=== PATIENT | female | born 1985 | race American Indian/Alaskan Native ===

== ENCOUNTER 2018-12-04 17:01 | Emergency (ER) | payer SELFPAY ==
[2018-12-04] MEDS ORDERED: ASPIRIN PO ONE (17:06)
[2018-12-04 17:41] LABS: Basophils % (Auto) 0.2 % (0.0-1.8); Eosinophils # (Auto) 0.2 K/mm3 (0.0-0.4); Hematocrit 36.9 % (30.3-42.9); Hemoglobin 12.6 gm/dl (10.1-14.3); Lymphocytes # (Auto) 3.5 K/mm3 (1.2-5.4); Lymphocytes % (Auto) 45.3 % (13.4-35.0); Mean Corpuscular HGB Conc 34 % (30-34); Mean Corpuscular Volume 90 fl (79-97); Monocytes # (Auto) 0.7 K/mm3 (0.0-0.8); Monocytes % (Auto) 9.7 % (0.0-7.3); Platelet Count 331 K/mm3 (140-440); Red Cell Distribution Width 13.7 % (13.2-15.2)
--- NOTE | 2018-12-04 17:42 | XRay Report ---
CHEST 2 VIEWS INDICATION / CLINICAL INFORMATION: Chest Pain. COMPARISON: None available. FINDINGS: SUPPORT DEVICES: None. HEART / MEDIASTINUM: No significant abnormality. LUNGS / PLEURA: No significant pulmonary or pleural abnormality. No pneumothorax. ADDITIONAL FINDINGS: No significant additional findings. IMPRESSION: 1. No acute findings. Signer Name: Anastacio Crenshaw MD Signed: 12/04/2018 5:37 PM Workstation Name: [id number]
[2018-12-04 17:58] LABS: BUN/Creatinine Ratio 11; Blood Urea Nitrogen 10 mg/dL (7-17); Calcium 9.3 mg/dL (8.4-10.2); Hemolysis Index 2
[2018-12-04] MEDS ORDERED: PERCOCET 5/325 PO ONE (20:02)
[2018-12-04] MEDS ORDERED: CATAPRES PO STA (20:53)
[2018-12-05 01:27] VITALS: BP 154/78
== END 2018-12-04 21:00 | disposition home or self-care (01) ==
LOC: ED 17:01
DX: R07.89 Other chest pain (principal); Z53.21 Procedure and treatment not carried out due to patient leaving prior to being seen by health care provider
CPT/HCPCS: 36415; 71046; 80048; 84484; 85025; 85379; 93005; 93010

== ENCOUNTER 2019-10-14 23:43 | Emergency (ER) | payer SELFPAY | END 2019-10-15 01:22 | LOC: ED 23:43 | DX: O26.893 Other specified pregnancy related conditions, third trimester (principal); R56.9 Unspecified convulsions; Z53.21 Procedure and treatment not carried out due to patient leaving prior to being seen by health care provider; Z3A.27 27 weeks gestation of pregnancy ==

== ENCOUNTER 2019-11-17 21:14 | Outpatient (CLI) | payer MEDICAID, OTHER ==
[2019-11-17] MEDS ORDERED: LACTATED RINGERS 1,000 ML ONE (21:32)
[2019-11-17 21:38] VITALS: BP 141/72
[2019-11-17] MEDS ORDERED: LACTATED RINGERS 500 ML IV ONE (22:00)
[2019-11-17 22:15] LABS: Bacteria,Urine 4+ /HPF (Negative); Bilirubin,Urine NEG (Negative); Blood,Urine NEG (Negative); Color,Urine Yellow (Yellow); Hyaline Casts,Urine 1 /LPF; Mucus,Urine FEW /HPF; Protein,Urine <15 mg/dL mg/dL (Negative); Urobilinogen,Urine < 2.0 mg/dL (<2.0)
[2019-11-17] MEDS ORDERED: ONDANSETRON 4 MG/2 ML INJ IV ONE (22:52)
== END 2019-11-17 22:50 | disposition home or self-care (01) ==
LOC: TRG 21:14 → APU 21:20 → TRG 22:50
PROVIDERS: ATTEND Obstetrics & Gynecology
DX: O99.613 Diseases of the digestive system complicating pregnancy, third trimester (principal); K92.0 Hematemesis; O10.013 Pre-existing essential hypertension complicating pregnancy, third trimester; Z3A.32 32 weeks gestation of pregnancy; Z79.899 Other long term (current) drug therapy
CPT/HCPCS: 59025; 81001; 87086; 96361; 96374; J2405; J7120; 96360

== ENCOUNTER 2019-12-31 16:08 | Outpatient (CLI) | payer MEDICAID ==
[2019-12-31 17:09] VITALS: BP 134/78
[2019-12-31 18:33] LABS: Bacteria,Urine 3+ /HPF (Negative); Bilirubin,Urine NEG (Negative); Blood,Urine NEG (Negative); Color,Urine Yellow (Yellow); Mucus,Urine FEW /HPF
== END 2019-12-31 18:27 | disposition left against medical advice (07) ==
LOC: APU 16:08 → TRG 16:08
PROVIDERS: ATTEND Obstetrics & Gynecology
DX: O47.1 False labor at or after 37 completed weeks of gestation (principal); N39.0 Urinary tract infection, site not specified; Z3A.38 38 weeks gestation of pregnancy
CPT/HCPCS: 81001; 87086

== ENCOUNTER 2020-01-11 20:35 | Inpatient (IN) | payer MEDICAID, OTHER ==
[2020-01-11] MEDS ORDERED: LACTATED RINGERS 1,000 ML ONE (20:49)
[2020-01-11] MEDS ORDERED: PROMETHAZINE 25 MG TAB PO PRN (23:24)
[2020-01-11] MEDS ORDERED: ePHEDrine SULFATE 50 MG/1 ML INJ IV PRN (23:24)
[2020-01-11] MEDS ORDERED: ACETAMINOPHEN 325 MG TAB PO PRN (23:24)
[2020-01-11] MEDS ORDERED: MINERAL OIL 30 ML ORAL LIQD PO PRN (23:24)
[2020-01-11] MEDS ORDERED: TERBUTALINE 1 MG/1 ML INJ SUB-Q PRN (23:24)
[2020-01-11] MEDS ORDERED: fentaNYL 100 MCG/2 ML INJ IV PRN (23:24)
[2020-01-11] MEDS ORDERED: BUTORPHANOL 2 MG/1 ML INJ IV PRN (23:24)
[2020-01-11] MEDS ORDERED: TERBUTALINE 1 MG/1 ML INJ IVP PRN (23:24)
[2020-01-11] MEDS ORDERED: ONDANSETRON 4 MG/2 ML INJ IV PRN (23:24)
[2020-01-11] MEDS ORDERED: LIDOCAINE (2%) 20 MG/1 ML VIAL 20 ML MDV INFILTRATI ONE (23:24)
[2020-01-11] MEDS ORDERED: NALOXONE 0.4 MG/1 ML INJ IV PRN (23:24)
[2020-01-11] MEDS ORDERED: ZOLPIDEM 5 MG TAB PO PRN (23:32)
[2020-01-11] MEDS ORDERED: OXYTOCIN 20 UNIT/1000ML DRIP 20 UNITS/1,000 ML BAG IV SCH (23:45)
[2020-01-11] MEDS: miSOPROStol 25 MCG TAB VG SCH (23:52)
[2020-01-11 23:58] LABS: Hematocrit 34.5 % (30.3-42.9); Hemoglobin 11.6 gm/dl (10.1-14.3); Mean Corpuscular HGB Conc 34 % (30-34); Mean Corpuscular Volume 89 fl (79-97); Platelet Count 240 K/mm3 (140-440); Red Blood Count 3.87 M/mm3 (3.65-5.03); Red Cell Distribution Width 14.1 % (13.2-15.2)
[2020-01-12] MEDS: miSOPROStol 25 MCG TAB VG SCH ×3 (04:10→12:32)
[2020-01-12] MEDS: NIFEdipine XL 30 MG TAB PO SCH (10:04)
[2020-01-12] MEDS: levETIRAcetam 500 MG TAB PO SCH (10:05)
[2020-01-12] MEDS: SERTRALINE 100 MG TAB PO SCH (10:05)
--- NOTE | 2020-01-12 13:09 | History and Physical Report ---
History of Present Illness Date of examination: 01/12/20 Date of admission: 01/11/20 20:35 Chief complaint: scheduled induction of labor History of present illness: Pt is a 34 year old -[place] female primigravida BRI 01/25/20 at 38w1d who presents for scheduled induction of labor secondary to chronic hypertension on Procardia 30 mg daily. She denies contractions, vaginal bleeding or leakage of fluid. She has had care with [facility] with comanagement by [facility] secondary to morbid obesity, chronic hypertension, anxiety and depression, pericardial effusion, GERD on omeprazole, Glucose intolerance, genital herpes without lesion or prodrome, h/o abnormal pap smear, Rubella equivocal status, seizure disorder or Keppra 500 mg BID, Trichomonas treated with negative test of cure. She is GBS negative. 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 History: abnormal PAP smear, herpes Family/Genetic History: heart disease, hypertension Social history: no significant social history, other (Same gender partner ) - Obstetrical History Expected Date of Delivery: 01/25/20 Actual Gestation: 38 Week(s) 1 Day(s) : 1 Medications and Allergies Allergies Allergy/AdvReac Type Severity Reaction Status Date / Time coconut Allergy Itching Verified 01/11/20 22:26 Home Medications Medication Instructions Recorded Confirmed Last Taken Type NIFEdipine [Procardia Xl] 30 mg PO DAILY 01/11/20 01/11/20 01/11/20 History 30 MG Sertraline HCl [Zoloft] 100 mg PO DAILY 01/11/20 01/11/20 01/11/20 History 100 levETIRAcetam [Keppra] 500 mg PO DAILY 01/11/20 01/11/20 01/11/20 History 500 MG Active Meds: Active Medications Acetaminophen (Tylenol) 650 mg PO Q4H PRN PRN Reason: Pain, Mild (1-3) Butorphanol Tartrate (Stadol) 1 mg IV Q2H PRN PRN Reason: Pain, Moderate(4-6) LABOR PAIN Butorphanol Tartrate (Stadol) 2 mg IV Q2H PRN PRN Reason: Pain , Severe (7-10) Ephedrine Sulfate (Ephedrine Sulfate) 10 mg IV Q2M PRN PRN Reason: Hypotension Fentanyl (Sublimaze) 100 mcg IV Q2H PRN PRN Reason: Pain,Severe (7-10) LABOR PAIN Oxytocin/Sodium Chloride (Pitocin/Ns 20 Unit/1000ml Drip) 20 units in 1,000 mls @ 125 mls/hr IV DIRECT TARYN Oxytocin/Sodium Chloride (Pitocin/Ns 30 Unit/500ml) 30 units in 500 mls @ 1 mls/hr IV TITR TARYN; Protocol Lactated Ringer's (Lactated Ringers) 1,000 mls @ 125 mls/hr IV DIRECT TARYN Levetiracetam (Keppra) 500 mg PO DAILY [facility] Last Admin: 01/12/20 10:05 Dose: 500 mg Documented by: Mineral Oil (Mineral Oil) 30 ml PO QHS PRN PRN Reason: Constipation Misoprostol (Cytotec) 25 mcg VG Q4H [facility] Last Admin: 01/12/20 12:32 Dose: 25 mcg Documented by: Naloxone HCl (Naloxone) 0.1 mg IV Q2MIN PRN PRN Reason: Res Rate </= 8 or 02 SAT < 92% Nifedipine (Procardia Xl) 30 mg PO QDAY [facility] Last Admin: 01/12/20 10:04 Dose: 30 mg Documented by: Ondansetron HCl (Zofran) 4 mg IV Q8H PRN PRN Reason: Nausea And Vomiting Last Admin: 01/12/20 10:40 Dose: 4 mg Documented by: Promethazine HCl (Phenergan) 25 mg PO Q6H PRN PRN Reason: Nausea And Vomiting Sertraline HCl (Zoloft) 100 mg PO QDAY [facility] Last Admin: 01/12/20 10:05 Dose: 100 mg Documented by: Terbutaline Sulfate (Brethine) 0.25 mg SUB-Q ONCE PRN PRN Reason: Hyperstimulation/Hypertonicity Terbutaline Sulfate (Brethine) 0.25 mg IVP ONCE PRN PRN Reason: Hyperstimulation/Hypertonicity Zolpidem Tartrate (Ambien) 5 mg PO QHS PRN PRN Reason: Sleep Review of Systems All systems: negative - Vital Signs Vital signs: Vital Signs Pulse BP 99 H 139/94 01/11/20 21:09 01/11/20 21:09 Temp Pulse Resp BP Pulse Ox 98.6 F 97 H 18 141/80 99 01/12/20 12:33 01/12/20 12:35 01/12/20 07:15 01/12/20 12:35 01/12/20 10:38 - Physical Exam Breasts: Positive: deferred Abdomen: Positive: soft (obese, gravid ) Genitourinary (Female): Positive: normal external genitalia Uterus: Positive: enlarged (gravid ) Extremities: Positive: edema - Obstetrical FHR: auscultation normal Uterine Contraction Monitor Mode: External Cervical Dilatation: 1 Cervical Effacement Percentage: 60 station: -2 Uterine Contraction Pattern: Irregular Uterine Tone Measurement Phase: Resting Uterine Contraction Intensity: Mild Results Result Diagrams: 01/11/20 22:00 All other labs normal. Assessment and Plan A: IUP at 38w1d undergoing induction of labor Chronic Hypertension on Procardia XL 30 mg Morbid obesity Anxiety and depression pericardial effusion GERD on omeprazole Glucose intolerance Genital herpes without lesion or prodrome Rubella equivocal status Seizure disorder on Keppra 500 mg BID Trichomonas treated with negative test of cure GBS negative P: Continue induction of labor Closely monitor maternal and status
[2020-01-12] MEDS ORDERED: FAMOTIDINE 20 MG/2 ML INJ IV PRN (21:11)
[2020-01-12] MEDS: OXYTOCIN DRIP 30 UNITS/500 ML BAG IV SCH (21:48)
[2020-01-13] MEDS: LACTATED RINGERS 1,000 ML IV SCH ×3 (02:00→23:12)
--- NOTE | 2020-01-13 08:51 | Event Note ---
Date: 01/13/20 Pt minimally uncomfortable. Category II tracing. SVE:/-2. AROM- clear fluid. IUPC placed. Continue pitocin titration. Closely monitor maternal status.
[2020-01-13] MEDS: levETIRAcetam 500 MG TAB PO SCH (10:49)
[2020-01-13] MEDS: NIFEdipine XL 30 MG TAB PO SCH (10:50)
[2020-01-13] MEDS: SERTRALINE 100 MG TAB PO SCH (10:50)
[2020-01-13] MEDS ORDERED: ePHEDrine SULFATE 50 MG/1 ML INJ IV PRN (12:23)
[2020-01-13] MEDS ORDERED: NALOXONE 2 MG/2 ML INJ IV PRN (12:23)
[2020-01-13] MEDS: BUTORPHANOL 2 MG/1 ML INJ IV PRN ×2 (12:24→14:53)
[2020-01-13] MEDS: OXYTOCIN DRIP 30 UNITS/500 ML BAG IV SCH ×4 (13:55→17:21)
[2020-01-13] MEDS ORDERED: DEXMEDETOMIDINE 200 MCG/2 ML VIAL IV ONE (16:45)
--- NOTE | 2020-01-13 16:58 | Anesthesia Consultation ---
Anesthesia Consult and Med Hx Date of service: 01/13/20 - Airway Anesthetic Teeth Evaluation: Good ROM Head & Neck: Adequate Mental/Hyoid Distance: Adequate Mallampati Class: Class IV Intubation Access Assessment: Possibly Difficult - Pulmonary Exam CTA: Yes - Cardiac Exam Cardiac Exam: RRR - Pre-Operative Health Status ASA Pre-Surgery Classification: ASA2 Proposed Anesthetic Plan: Epidural - Pulmonary Hx Smoking: No Hx Asthma: No COPD: No Hx Pneumonia: No Hx Sleep Apnea: No - Cardiovascular System Hx Hypertension: Yes - Central Nervous System Hx Seizures: Yes Hx Psychiatric Problems: Yes - Gastrointestinal Hx Gastroesophageal Reflux Disease: Yes - Endocrine Hx Renal Disease: No Hx End Stage Renal Disease: No Hx Hypothyroidism: No Hx Hyperthyroidism: No - Hematic Hx Anemia: No Hx Sickle Cell Disease: No - Other Systems Hx Alcohol Use: No Hx Obesity: Yes
--- NOTE | 2020-01-13 17:05 | Progress Note ---
Labor Epidural - Labor Epidural Start Time: 16:25 Stop Time: 16:43 Performed by:: JUSTIN LONDONO Procedure: Patient is requesting a laboring epidural for laboring pain. Patient IDed, H&P reviewed, all questions and concerns were answered, and consent was signed. Timeout was performed at bedside. Patient in sitting position. Sterile prep and drape was performed. 3ml of 1% lidocaine skin wheal at L[3]- L [4]. 18- gauge Touhy epidural needle was advanced to loss of resistance with air at 9cm technique. Negative CSF negative blood. Epidural catheter advanced to [16] centimeters. [-] Aspiration [-] test dose. Sterile dressing applied. Patient tolerated procedure.
[2020-01-13] MEDS: fentaNYL-BUPIV 2 MCG/ML-0.125% 200 MCG/100 ML BAG EPIDURAL SCH (17:31)
[2020-01-14] MEDS: fentaNYL-BUPIV 2 MCG/ML-0.125% 200 MCG/100 ML BAG EPIDURAL SCH (01:27)
[2020-01-14] MEDS ORDERED: BUPIVACAINE/PF (0.25%) 2.5 MG/ML 10 ML VIAL INFILTRATI ONE (02:18)
--- NOTE | 2020-01-14 05:57 | Event Note ---
Date: 01/14/20 Pt reports rectal pressure. Anterior lip noted, not reducible. Maternal tachycardia noted, temperature 102.8 degrees F. Initiate Ampicillin and Gen tamicin. Pitocin now infusing, line was previously occluded. Closely monitor clinical status.
[2020-01-14] MEDS: AMPICILLIN/NS 2 GM/100 ML 2 GM/100 ML BAG IV SCH ×3 (06:00→23:41)
[2020-01-14] MEDS ORDERED: GENTAMICIN/NS 120MG/100ML 120 MG/100 ML BAG IV SCH (06:00)
[2020-01-14] MEDS ORDERED: GENTAMICIN/NS 80 MG/100 ML 100 ML IV SCH (06:00)
[2020-01-14] MEDS ORDERED: PROMETHAZINE 25 MG TAB PO PRN (07:17)
[2020-01-14] MEDS ORDERED: MAGNESIUM HYDROXIDE (MOM) ORAL LIQD UDC PO PRN (07:17)
[2020-01-14] MEDS ORDERED: WITCH HAZEL/ GLYCERIN PAD TP PRN (07:17)
[2020-01-14] MEDS ORDERED: ACETAMINOPHEN 325 MG TAB PO PRN (07:17)
[2020-01-14] MEDS ORDERED: PROMETHAZINE 25 MG RECT SUPP PR PRN (07:17)
[2020-01-14] MEDS ORDERED: LANOLIN/ZINC/DIMETHICONE (LANSINOH) 7 GM TP PRN (07:17)
[2020-01-14] MEDS ORDERED: ONDANSETRON 4 MG/2 ML INJ IV PRN (07:17)
[2020-01-14] MEDS ORDERED: diphenhydrAMINE 25 MG CAP PO PRN (07:17)
--- NOTE | 2020-01-14 07:17 | Procedure Note ---
OB Delivery Note - Delivery Date of Delivery: 01/14/20 Surgeon: STEPHENIE CONNOLLY ([facility]) Estimated blood loss: 300cc - Vaginal Delivery presentation: vertex Delivery position: OA Intrapartum events: febrile- temp >100.3, PROM->1hr before delivery Delivery induction: misoprostol Delivery augmentation: rupture of membranes, pitocin Delivery monitor: external FHT Route of delivery: Delivery placenta: spontaneous Delivery cord: 3 umbilical vessels, other (true knot) Episiotomy: none Delivery laceration: 1st degree (hemostatic, not repaired) Anesthesia: epidural Delivery comments: Excellent maternal effort progressed to of viable female at 0650. Head delivered OA, restituted LOT, shoulders followed with gentle traction. Terminal meconium. Infant to maternal abdomen, gasping, good tone and color. Cord clamped and cut, to warmer, NICU team present. True knot noted in cord. Venous cord blood gas collected. Placenta delivered spontaneously and intact, 3VC. Shallow first degree perineal laceration noted, hemostatic, not repaired. Brisk bleeding resolved with manual removal of clot from lower uterine segment. Pitocin infusing, fundus firm. Mother and bonding well. Apgars 7/9. - A at 1 minute: 7 at 5 minutes: 9 Infant Gender: Female
[2020-01-14] MEDS ORDERED: GENTAMICIN/NS 80 MG/100 ML 100 ML IV ONE (07:26)
[2020-01-14] MEDS ORDERED: GENTAMICIN 400 MG in SODIUM CHLORIDE 0.9% 100 ML IV SCH (08:00)
[2020-01-14] MEDS ORDERED: OXYTOCIN 20 UNIT/1000ML DRIP 20,000 MILLIUNITS/1,000 ML BAG IV ONE (08:35)
[2020-01-14] MEDS: IBUPROFEN 600 MG TAB PO SCH ×2 (17:39→23:45)
[2020-01-14 21:39] LABS: Hematocrit 28.6 % (30.3-42.9); Hemoglobin 9.3 gm/dl (10.1-14.3)
[2020-01-15] MEDS: AMPICILLIN/NS 2 GM/100 ML 2 GM/100 ML BAG IV SCH ×2 (06:05→11:00)
[2020-01-15] MEDS: IBUPROFEN 600 MG TAB PO SCH (06:09)
--- NOTE | 2020-01-15 08:04 | Post Anesthesia Evaluation ---
- Post Anesthesia Evaluation Patient Participated: Yes Airway Patent: Yes Stable Respiratory Function: Yes Nausea/Vomiting: No Temp > 96.8F: Yes Pain Manageable: Yes Adequeate Hydration: Yes Anesthesia Complications: No Block Receding Appropriately: Yes Patient on Ventilator: No
[2020-01-15 09:09] VITALS: BP 136/85
[2020-01-15] MEDS ORDERED: NIFEdipine XL 30 MG TAB PO SCH (10:00)
--- NOTE | 2020-01-15 10:58 | Progress Note ---
Assessment and Plan PPd 1 s/p . Doing well. Pt has a history of seizure disorder and hypertension. Pt is planning for discharge on today if infant is ok to go. Pt stated that she has enough medication refills. Subjective - Subjective Date of service: 01/15/20 Interval history: s/p on 07/16/19 Patient reports: appetite normal, voiding normally, pain well controlled, ambulating normally : doing well Objective - Vital Signs Latest vital signs: Vital Signs Temp Pulse Resp BP Pulse Ox 01/15/20 09:01 98.0 F 84 18 136/85 98 01/15/20 01:19 97.8 F 92 H 20 132/82 97 01/14/20 16:59 98.3 F 107 H 18 123/70 98 01/14/20 12:41 97.8 F 103 H 18 126/83 96 Intake and Output 01/14/20 01/15/20 01/15/20 22:59 06:59 14:59 Intake Total 460 100 Output Total 1200 Balance -740 100 Intake: IV 100 100 AMPICILLIN/NS 2 GM/100 ML 100 100 2 gm In 100 ml @ 100 mls /hr IV Q6HR [facility] Rx#: [id number] Intake, Free Water 360 Output: Urine 1200 Void 1200 Other: Total, Output Amount 400 # Voids Void 1 1 - Exam Breasts: Present: deferred Cardiovascular: Present: Regular rate, Normal S1, Normal S2 Lungs: Present: Clear to auscultation, Normal air movement Abdomen: Present: normal appearance, soft Extremities: Present: normal - Labs Labs: Abnormal lab results 01/14/20 01/14/20 Range/Units 07:26 20:41 Hgb 9.3 L (10.1-14.3) gm/dl Hct 28.6 L (30.3-42.9) % ABG pH 7.251 L (7.320-7.450) POC ABG pO2 31.8 L (83-108) mmHg ABG Sodium 133.9 L (136.0-145.0) mmol/L ABG Potassium 4.6 H (3.40-4.50) mmol/L ABG Glucose 115 H (65-95) mg/dL Arterial Blood Glucose 115 H (65-95) mg/dL Arterial Blood Ionized Calcium 6.1 H (4.6-5.3) mg/dL
--- NOTE | 2020-01-15 11:01 | Discharge Summary ---
Providers - Providers Date of Admission: 01/11/20 20:35 Date of discharge: 01/15/20 Attending physician: NADJA JACKSON Primary care physician: NADJA JACKSON Hospitalization Reason for admission: induction of labor Delivery: Episiotomy: none Laceration: 1st degree complications: none Discharge diagnosis: IUP at term delivered baby: female Hospital course: unremarkable Condition at discharge: Good Disposition: DC-01 TO HOME OR SELFCARE Plan - Discharge Medications Prescriptions: Ibuprofen [Motrin] 800 mg PO Q8HR PRN #40 tablet PRN Reason: Pain, Mild (1-3) NIFEdipine XL [Procardia Xl] 30 mg PO QDAY #30 tablet - Provider Discharge Summary Additional instructions: [] Smoking cessation referral if applicable(refer to patient education folder for contact #) [] Refer to [facility]'s [facility] Booklet Call your doctor immediately for: * Fever > 100.5 * Heavy vaginal bleeding ( >1 pad per hour) * Severe persistent headache * Shortness of breath * Reddened, hot, painful area to leg or breast * Drainage or odor from incision. * Keep incision clean and dry at all times and follow doctor's instructions regarding bathing/showering - Follow up plan Follow up: NADJA JACKSON MD [Primary Care Provider] - 7 Days
== END 2020-01-15 13:00 | disposition home or self-care (01) | DRG 774 ==
LOC: LD 20:35 → OB 01-14 09:14
PROVIDERS: ADMIT Obstetrics & Gynecology; ATTEND Obstetrics & Gynecology
PROC: 10907ZC Drainage of Amniotic Fluid, Therapeutic from Products of Conception, Via Natural or Artificial Opening (ICD-10-PCS; 2020-01-13)
PROC: 10H07YZ Insertion of Other Device into Products of Conception, Via Natural or Artificial Opening (ICD-10-PCS; 2020-01-13)
PROC: 10E0XZZ Delivery of Products of Conception, External Approach (ICD-10-PCS; principal; 2020-01-14)
PROC: 3E033VJ Introduction of Other Hormone into Peripheral Vein, Percutaneous Approach (ICD-10-PCS; 2020-01-14)
PROC: 3E0R3BZ Introduction of Anesthetic Agent into Spinal Canal, Percutaneous Approach (ICD-10-PCS; 2020-01-14)
PROC: 00HU33Z Insertion of Infusion Device into Spinal Canal, Percutaneous Approach (ICD-10-PCS; 2020-01-14)
PROC: 4A033R1 Measurement of Arterial Saturation, Peripheral, Percutaneous Approach (ICD-10-PCS; 2020-01-14)
DX: O10.92 Unspecified pre-existing hypertension complicating childbirth (principal); E66.01 Morbid (severe) obesity due to excess calories; O99.354 Diseases of the nervous system complicating childbirth; G40.909 Epilepsy, unspecified, not intractable, without status epilepticus; O42.02 Full-term premature rupture of membranes, onset of labor within 24 hours of rupture; O69.2XX0 Labor and delivery complicated by other cord entanglement, with compression, not applicable or unspecified; O99.62 Diseases of the digestive system complicating childbirth; K21.9 Gastro-esophageal reflux disease without esophagitis; O99.214 Obesity complicating childbirth; O99.344 Other mental disorders complicating childbirth; F41.9 Anxiety disorder, unspecified; F32.9 Major depressive disorder, single episode, unspecified; O98.32 Other infections with a predominantly sexual mode of transmission complicating childbirth; A60.00 Herpesviral infection of urogenital system, unspecified; O70.0 First degree perineal laceration during delivery; Z3A.38 38 weeks gestation of pregnancy; Z37.0 Single live birth; Z82.49 Family history of ischemic heart disease and other diseases of the circulatory system; Z79.899 Other long term (current) drug therapy
CPT/HCPCS: 36415; 59200; 82805; 85014; 85018; 85027; 86850; 86900; 86901; 96374; 96375; 96376; G0378; J0290; J0595; J1580; J2405; J2590; J3010; J3490; J7120